=== PATIENT | male | born 1970 | race Caucasian/White ===

== ENCOUNTER → 2023-08-13 | Outpatient (CLI) | payer BC ==
[2023-08-13 13:08] LABS: BASO # 0.1 10^3/uL (0.0-0.2); EOS # 0.5 10^3/uL (0.0-0.5); EOS % 7.6 % (0.0-3.0); HEMATOCRIT 47.3 % (42.0-52.0); HEMOGLOBIN 16.2 g/dl (13.5-17.5); LYMPH % 32.4 % (24.0-44.0); MEAN CORPUSCULAR HEMOGLOBIN 30.3 pg (27.0-33.0); MEAN CORPUSCULAR HGB CONC 34.2 g/dl (32.0-36.5); MEAN CORPUSCULAR VOLUME 88.4 fl (80.0-96.0); MONO # 0.5 10^3/uL (0.0-0.8); MONO % 7.9 % (2.0-8.0); NEUTROPHILS # 3.2 10^3/uL (1.5-8.5); NEUTROPHILS % 50.8 % (36.0-66.0); PLATELET COUNT, AUTOMATED 303 10^3/uL (150-450); RED BLOOD COUNT 5.35 10^6/uL (4.30-6.10); WHITE BLOOD COUNT 6.3 10^3/uL (4.0-10.0)
[2023-08-13 16:57] LABS: RHEUMATOID FACTOR QUANT 5.6 IU/ML (<14)
[2023-08-13 16:58] LABS: ALKALINE PHOSPHATASE 70 U/L (46-116); ALT/SGPT 18 U/L (7.0-40); AST/SGOT 14 U/L (<34); BILIRUBIN,TOTAL 0.6 MG/DL (0.3-1.2); BLOOD UREA NITROGEN 17 MG/DL (9-23); CALCIUM LEVEL 8.8 MG/DL (8.5-10.1); CARBON DIOXIDE LEVEL 25 MMOL/L (20-31); CHLORIDE LEVEL 106 MMOL/L (98-107); CREATININE FOR GFR 1.11 MG/DL (0.70-1.30); GLOMERULAR FILTRATION RATE > 60.0 (>56); GLUCOSE, FASTING 97 MG/DL (60-100); POTASSIUM SERUM 4.4 MMOL/L (3.5-5.1); SODIUM LEVEL 138 MMOL/L (136-145); TOTAL PROTEIN 6.9 G/DL (5.7-8.2)
[2023-08-13 17:02] LABS: FREE THYROXINE INDEX 3.6 % (1.4-3.8); HEMOGLOBIN A1c 5.5 % (4.0-6.0); T UPTAKE 33.3 % (22.5-37.0); THYROID STIMULATING HORMONE 0.776 uIU/ML (0.55-4.78); THYROXINE (T4) 10.7 UG/DL (4.5-10.9)
[2023-08-13 17:04] LABS: VITAMIN B12 LEVEL 322 PG/ML (211-911)
[2023-08-13 20:11] LABS: ERYTHROCYTE SEDIMENTATION RATE 15 mm/hr (0-20)
[2023-08-19 17:09] LABS: ANTINUCLEAR ANTIBODIES DIRECT Negative (Negative); IMMUNOTYPING SERUM IGA SO 272 mg/dL (90-386); IMMUNOTYPING SERUM IGM SO 58 mg/dL (20-172); VITAMIN B1 LEVEL WHOLE BLOOD 153.1 nmol/L (66.5-200.0); VITAMIN B6,PYRIDOXAL PHOSPHATE 13.8 ug/L (3.4-65.2); VITAMIN E(ALPHA TOCOPHEROL) 10.1 mg/L (7.0-25.1); VITAMIN E(GAMMA TOCOPHEROL) 2.4 mg/L (0.5-5.5)
== END ==
LOC: M PLALAB 09:24
PROVIDERS: ATTEND Psychiatry & Neurology Neurology
DX: E07.9 Disorder of thyroid, unspecified (principal); E11.42 Type 2 diabetes mellitus with diabetic polyneuropathy; E53.8 Deficiency of other specified B group vitamins